=== PATIENT | female | born 1985 | race Caucasian/White ===

== ENCOUNTER → 2021-12-30 11:09 | Outpatient (CLI) | payer OTHER, SELFPAY ==
[2021-12-30 11:46] LABS: Add Manual Diff / Slide Review NO; Basophils Absolute Auto 100 /uL (0-100); Eosinophils Absolute Auto 100 /uL (0-450); Eosinophils Percent Auto 1.6 % (2-4); Hematocrit 38.8 % (36-46); Hemoglobin 13.4 g/dL (12.0-16.0); Lymphocytes Absolute Auto 1600 /uL (1100-4500); Mean Corpuscular HGB Conc 34.4 % (30-36); Mean Corpuscular Hemoglobin 27.4 PG (26-34); Mean Corpuscular Volume 79.8 fL (80-100); Monocytes Absolute Auto 500 /uL (0-900); Monocytes Percent Auto 7.6 % (3-14); Neutrophils Absolute Auto 3900 /uL (1500-7000); Neutrophils Percent Auto 63.8 % (50-75); Platelet Count 213 X10^3/uL (150-400); Red Blood Cell Count 4.87 X10^6/uL (4.0-5.2); Red Cell Distribution Width 13.4 % (11.6-14.8); White Blood Cell Count 6.1 X10^3/uL (4.5-11.0)
[2021-12-30 11:53] LABS: Hemoglobin A1C% w Est Avg Glu 4.9 % (4.0-6.0)
[2021-12-30 12:56] LABS: Prolactin 36.2 ng/mL (3.0-18.6)
[2021-12-30 13:09] LABS: TSH w/ Reflex to FT4 2.02 uIU/mL (0.47-4.68)
[2021-12-30 13:29] LABS: Vitamin B12 448 pg/mL (239-931)
[2021-12-31 08:52] LABS: Insulin Level Total 14.4 uIU/mL (2.6-24.9)
[2022-01-04 14:14] LABS: Percent Free Testosterone 1.41 % (0.50-2.80); Testosterone Free 0.24 ng/dL (0.10-0.85); Testosterone Total 16.8 ng/dL (10.0-55.0)
== END ==
PROVIDERS: PCP Family Medicine; Referring Provider Family Medicine; Visit Provider Family Medicine
DX: N97.0 Female infertility associated with anovulation (principal)
CPT/HCPCS: 36415; 82607; 83036; 83525; 84146; 84402; 84403; 84443; 85025

== ENCOUNTER → 2022-01-07 10:57 | Outpatient (CLI) | payer OTHER, SELFPAY ==
--- NOTE | 2022-01-07 10:57 | DI.MRI.S_ITS ---
PROCEDURE: MR HEAD/BRAIN WO/W CON INDICATIONS: 36-year-old female with hyperprolactinemia TECHNIQUE: Multiplanar multisequential MRI images of the brain and sella were obtained before and after intravenous gadolinium contrast administration. And dynamic postcontrast sequence the sella was also obtained COMPARISON: None. FINDINGS: Sella and Pituitary Gland: The pituitary gland is appropriate in size and signal. Posterior pituitary bright spot unremarkable. The post contrast images demonstrate normal homogeneous enhancement of the entire gland. The pituitary infundibulum is midline. No suprasellar cistern mass lesion present. The cavernous sinuses enhance normally. Flow voids are noted in the cavernous segments of both internal carotid arteries. Brain and Meninges: The diffusion sequence is normal without evidence of acute infarct. There is a normal cerebral and cerebellar volume present. White matter is unremarkable without evidence of edema. Basal cisterns are clear. No evidence of dural or leptomeningeal thickening. No abnormal enhancement noted. Susceptibility weighted imaging shows no evidence of intracranial hemorrhage. Ventricles: Appropriate in size and position. No hydrocephalus. Skull Base: Visualized portions of the seventh and eighth cranial nerve complexes and internal auditory canals are within normal limits. Scalp and Calvarium: The scalp is unremarkable. Underlying calvarium has an appropriate marrow signal. Paranasal Sinuses: Visualized sinuses are clear other than small bilateral maxillary sinus retention cyst. Mastoids: Unremarkable as visualized. No mastoid effusion. Orbits: The orbits, globes and ocular muscles unremarkable. IMPRESSION: Unremarkable MRI of the brain and pituitary gland with and without contrast. No evidence of pituitary adenoma. Approved by: Venkatesh Booth M.D. on 01/08/2022 at 8:17
== END ==
PROVIDERS: PCP Family Medicine; Referring Provider Family Medicine; Visit Provider Family Medicine
DX: R79.89 Other specified abnormal findings of blood chemistry (principal)
CPT/HCPCS: 70553; A9579

== ENCOUNTER → 2022-03-21 10:36 | Outpatient (CLI) | payer OTHER, SELFPAY ==
[2022-03-22 07:49] LABS: HCG Quantitative /Beta subunit 9288.9 mIU/mL
== END ==
PROVIDERS: PCP Family Medicine; Referring Provider Family Medicine; Visit Provider Family Medicine
DX: Z34.81 Encounter for supervision of other normal pregnancy, first trimester (principal)
CPT/HCPCS: 36415; 84702

== ENCOUNTER → 2022-03-24 10:16 | Outpatient (CLI) | payer OTHER, SELFPAY ==
[2022-03-24 12:42] LABS: HCG Quantitative /Beta subunit 1896.2 mIU/mL
== END ==
PROVIDERS: PCP Family Medicine; Referring Provider Family Medicine; Visit Provider Family Medicine
DX: Z34.81 Encounter for supervision of other normal pregnancy, first trimester (principal)
CPT/HCPCS: 36415; 84702

== ENCOUNTER → 2022-03-25 07:54 | Outpatient (CLI) | payer OTHER, SELFPAY ==
--- NOTE | 2022-03-25 07:56 | DI.MRI.S_ITS ---
PROCEDURE: MR HEAD/BRAIN WO/W CON INDICATIONS: visua changes, optic neuritis, r/o MS TECHNIQUE: Noncontrast sagittal and axial FLAIR, axial and coronal T2 fast spin echo, axial VIBE, axial gradient echo, axial diffusion and ADC through the brain. After the administration of contrast, axial and coronal VIBE with fat saturation through the brain. COMPARISON: [facility], MR, MR HEAD/BRAIN WO/W CON, 01/07/2022, 11:17. FINDINGS: Image quality: Excellent. CSF spaces: Ventricles are normal in size and shape. Basal cisterns are patent. No extra-axial fluid collections. Brain: No intracranial bleeds or mass effects. Mathias-white matter interface appears intact. No suspicious white matter lesions. No abnormal intracranial enhancement. Diffusion weighted images show no acute ischemic insults. Brainstem appears normal. Normal intravascular flow voids are present. Skull and face: Calvarial marrow signal is normal. Globes are within normal limits. There is moderate increased enhancement and mild enlargement involving the left optic nerve. Mildly increased FLAIR signal intensity within the left optic nerve is present.. Sinuses: Small bilateral maxillary sinus retention cyst. Sinuses and mastoids are otherwise clear. IMPRESSION: 1. Left-sided optic neuritis, consistent with multiple sclerosis. 2. No intracranial abnormalities to indicate multiple sclerosis. 3. No recent infarct. Dictated by: Manuel Olivas M.D. on 03/27/2022 at 8:32 Approved by: Manuel Olivas M.D. on 03/27/2022 at 8:35
--- NOTE | 2022-03-25 07:56 | DI.MRI.S_ITS ---
PROCEDURE: MR CERVICAL SPINE WO CON INDICATIONS: visual changes, optic neuritis, r/o MS TECHNIQUE: Noncontrast sagittal T1 spin echo and T2 fast spin echo, sagittal STIR, foraminal oblique sagittal T2 fast spin echo, and axial gradient echo or T2 fast spin echo through the cervical spine. COMPARISON: [facility], , C-SPINE WITHOUT CONTRAST, 02/17/2015, 17:11. FINDINGS: Image quality: Excellent. Alignment and Curvature: There is normal bony alignment. Bone Marrow: Marrow demonstrates normal overall signal. Spinal Cord: Visualized spinal cord has normal size and signal. No cerebellar tonsillar herniation. Paraspinous Soft Tissues: No paravertebral masses. Prevertebral soft tissues are normal in thickness. C2-C3: Normal appearance. C3-C4: Normal appearance. C4-C5: Mild disc desiccation. Mild facet and uncovertebral hypertrophy bilaterally. No canal stenosis. Mild bilateral foraminal stenosis. No significant change. C5-C6: Mild disc desiccation. Mild facet and uncovertebral hypertrophy bilaterally. No significant canal stenosis. Mild bilateral foraminal stenosis. No significant change. C6-C7: Mild disc desiccation and diffuse disc bulge with small superimposed central protrusion. Mild bilateral facet hypertrophy. Mild canal stenosis. No foraminal stenosis. No significant change. C7-T1: Normal appearance. IMPRESSION: 1. Multilevel degenerative disc and facet disease, as well as uncovertebral hypertrophy, causing mild multilevel canal and foraminal stenoses. No neural impingement. 2. No abnormal cord signal to indicate multiple sclerosis. Dictated by: Manuel Olivas M.D. on 03/27/2022 at 8:28 Approved by: Manuel Olivas M.D. on 03/27/2022 at 8:31
== END ==
PROVIDERS: PCP Naturopath; Referring Provider Naturopath; Visit Provider Family Medicine
DX: H46.9 Unspecified optic neuritis (principal); H53.9 Unspecified visual disturbance; M50.321 Other cervical disc degeneration at C4-C5 level; M48.02 Spinal stenosis, cervical region
CPT/HCPCS: 70553; 72141; A9579

== ENCOUNTER → 2022-06-20 10:49 | Outpatient (CLI) | payer OTHER, SELFPAY ==
[2022-06-20 11:42] LABS: Add Manual Diff / Slide Review NO; Basophils Absolute Auto 0 /uL (0-100); Basophils Percent Auto 0.8 % (0-2); Eosinophils Absolute Auto 0 /uL (0-450); Eosinophils Percent Auto 0.9 % (2-4); Hematocrit 38.2 % (36-46); Hemoglobin 12.9 g/dL (12.0-16.0); Lymphocytes Absolute Auto 1700 /uL (1100-4500); Lymphocytes Percent Auto 31.5 % (25-40); Mean Corpuscular HGB Conc 33.8 % (30-36); Mean Corpuscular Hemoglobin 26.6 PG (26-34); Mean Corpuscular Volume 78.7 fL (80-100); Monocytes Absolute Auto 500 /uL (0-900); Monocytes Percent Auto 9.4 % (3-14); Neutrophils Absolute Auto 3100 /uL (1500-7000); Neutrophils Percent Auto 57.4 % (50-75); Platelet Count 226 X10^3/uL (150-400); Red Blood Cell Count 4.86 X10^6/uL (4.0-5.2); Red Cell Distribution Width 15.2 % (11.6-14.8); White Blood Cell Count 5.4 X10^3/uL (4.5-11.0)
[2022-06-20 12:08] LABS: HCG Quantitative /Beta subunit 324.2 mIU/mL
[2022-06-20 12:35] LABS: Hepatitis B Surface Antigen NEGATIVE s/c (NEGATIVE); Rubella Antibody IgG 25.4 IU/mL (>15)
[2022-06-20 12:52] LABS: HIV 1 & 2 Ab/Ag 4th Gen Combo NEGATIVE (NEGATIVE); Hep C Virus Ab w/Reflex Quant NEGATIVE s/c (NEGATIVE)
[2022-06-20 12:53] LABS: Appearance Urine UA CLEAR; Bilirubin Urine UA NEGATIVE (NEGATIVE); Color Urine UA YELLOW; Glucose Urine UA NEGATIVE (Negative); Ketones Urine UA NEGATIVE (NEGATIVE); Leukocyte Esterase Urine UA TRACE (NEGATIVE); Nitrite Urine UA NEGATIVE (Negative); Occult Blood Urine UA NEGATIVE (Negative); Protein Urine UA NEGATIVE (Negative); Specific Gravity Urine UA 1.015 (1.000-1.035); Urobilinogen Urine UA 0.2 E.U./dL (0.2)
[2022-06-20 13:11] LABS: Bacteria Urine None Seen; Culture Indicated Urine Cult Not Indicated; RBC Urine None Seen (0-5/HPF); Squamous Epithelial Cell Urine 0-1 /HPF (0-5/HPF); WBC Urine 0-1/HPF (0-5/HPF)
[2022-06-21 07:10] LABS: RPR Screen Non Reactive (Non Reactive); Varicella IgG Antibody 2591 index (Immune >165)
[2022-06-25 17:58] LABS: Estrogen 138 pg/mL (.)
[2022-06-27 20:09] LABS: % Free Progesterone 2.3 % (.); Free Progesterone 45 ng/dL (.); Progesterone, Serum 1937 ng/dL (.)
== END ==
PROVIDERS: PCP Family Medicine; Referring Provider Family Medicine; Visit Provider Family Medicine
DX: Z34.81 Encounter for supervision of other normal pregnancy, first trimester (principal); E28.2 Polycystic ovarian syndrome
CPT/HCPCS: 36415; 80055; 81003; 81015; 82672; 84144; 84443; 84702; 84999; 86787; 86803; 86850; 86900; 86901; 87389

== ENCOUNTER → 2022-06-22 11:03 | Outpatient (CLI) | payer OTHER, SELFPAY ==
[2022-06-22 11:56] LABS: HCG Quantitative /Beta subunit 752.2 mIU/mL
== END ==
PROVIDERS: PCP Family Medicine; Referring Provider Family Medicine; Visit Provider Family Medicine
DX: Z34.81 Encounter for supervision of other normal pregnancy, first trimester (principal)
CPT/HCPCS: 36415; 84702

== ENCOUNTER → 2022-07-19 12:45 | Outpatient (CLI) | payer OTHER, SELFPAY ==
--- NOTE | 2022-07-19 12:47 | DI.US.S_ITS ---
PROCEDURE: US OB <= 14 WK FETUS ADD GEST INDICATIONS: 8 wk, determine type of twin OUTSIDE/PRIOR DATING DATA: Last menstrual period (LMP): Unknown. LMP-based estimated date of delivery (JESSENIA): Unknown. First dating scan (date and location): 07/20/2022. Estimated date of delivery (JESSENIA) from first dating scan: 02/25/2023. TECHNIQUE: Real-time scanning was performed of the fetuses and maternal pelvic organs, with image documentation. Endovaginal scanning: Performed for better visualization of the fetuses and maternal adnexal structures. COMPARISON: None. FINDINGS: General: An intrauterine diamniotic twin is present. Embryo A: A yolk sac is identified. [place]-rump length measures 1.7 cm, 8 weeks 1 day. Heart rate: 169 Embryo B: A yolk sac is identified. [place]-rump length measures 1.9 cm, 8 weeks 3 days. There is an adjacent perigestational bleed Heart rate: 178 Maternal organs: Ovaries demonstrate a probable corpus luteal cyst on the right. IMPRESSION: 1. Live twin measuring 8 weeks 1 day/8 weeks 3 days. 2. Perigestational bleed adjacent to twin B. We strive to produce accurate, complete, and clear reports of imaging services. To assist us in improving patient care, this report was composed using standard report templates and voice recognition software. Therefore, it may contain abnormal punctuation, insertions and/or omissions. Occasional wrong-word or sound-alike substitutions may occur. Though we review the report and make efforts to correct it, we do recommend that the report be read carefully in proper context to recognize any text inaccuracies. Dictated by: Evert Redmond M.D. on 07/21/2022 at 8:28 Approved by: Evert Redmond M.D. on 07/21/2022 at 8:36
== END ==
PROVIDERS: PCP Family Medicine; Referring Provider Obstetrics & Gynecology; Visit Provider Obstetrics & Gynecology
DX: O30.001 Twin pregnancy, unspecified number of placenta and unspecified number of amniotic sacs, first trimester (principal); O20.9 Hemorrhage in early pregnancy, unspecified; Z3A.08 8 weeks gestation of pregnancy
CPT/HCPCS: 76801; 76802; 76817

== ENCOUNTER → 2022-08-09 09:02 | Outpatient (CLI) | payer OTHER, SELFPAY ==
--- NOTE | 2022-08-09 09:03 | DI.US.S_ITS ---
PROCEDURE: US OB <= 14 WEEKS FETUS INDICATIONS: TWIN GESTATION; EVALUATE FOR DIVIDING MEMBRANE OUTSIDE/PRIOR DATING DATA: Last menstrual period (LMP): Unknown LMP-based estimated date of delivery (JESSENIA): Unknown. First dating scan (date and location): 07/19/2022 Estimated date of delivery (JESSENIA) from first dating scan: 02/25/2023 The calculations are made using the study generated JESSENIA of 02/25/2023. TECHNIQUE: Real-time scanning was performed of the fetuses and maternal pelvic organs, with image documentation. Endovaginal scanning: Performed for better visualization of the fetuses and maternal adnexal structures. COMPARISON: [facility], , OB <= 14 WK FETUS ADD GEST, 07/19/2022, 13:06. FINDINGS: General: An intrauterine diamniotic monochorionic twin is present, as evidence by intervening membrane thickness of greater than 2 mm at this early gestational age. Placental location is anterior with complete placenta previa. Embryo A: Maternal right side with breech presentation. [place]-rump length measures 4.6 cm. Estimated gestational age is 11 weeks, 3 days. Estimated gestational age based on previous study is 11 weeks, 3 days. Heart rate: 165 beats per minute Embryo B: Maternal left side and is in transverse presentation. [place]-rump length measures 5.3 cm with estimated gestational age of 12 weeks, 0 day. Estimated gestational age based on previous study is 11 weeks, 3 days. Heart rate: 169 beats per minute Maternal organs: Ovaries are not visualized. IMPRESSION: 1. Diamniotic monochorionic twin gestation as described in detail above. 2. Placenta location is anterior with complete% a previa. We strive to produce accurate, complete, and clear reports of imaging services. To assist us in improving patient care, this report was composed using standard report templates and voice recognition software. Therefore, it may contain abnormal punctuation, insertions and/or omissions. Occasional wrong-word or sound-alike substitutions may occur. Though we review the report and make efforts to correct it, we do recommend that the report be read carefully in proper context to recognize any text inaccuracies. Dictated by: Jesus Farah M.D. on 08/09/2022 at 13:00 Approved by: Jesus Farah M.D. on 08/09/2022 at 13:05
== END ==
PROVIDERS: PCP Family Medicine; Referring Provider Obstetrics & Gynecology; Visit Provider Obstetrics & Gynecology
DX: O30.031 Twin pregnancy, monochorionic/diamniotic, first trimester (principal)
CPT/HCPCS: 76801; 76802; 76817

== ENCOUNTER → 2022-08-14 09:43 | Outpatient (CLI) | payer OTHER, SELFPAY ==
[2022-08-14 11:53] LABS: Add Manual Diff / Slide Review NO; Basophils Absolute Auto 0 /uL (0-100); Basophils Percent Auto 0.4 % (0-2); Eosinophils Absolute Auto 100 /uL (0-450); Eosinophils Percent Auto 1.1 % (2-4); Hematocrit 36.2 % (36-46); Hemoglobin 12.3 g/dL (12.0-16.0); Lymphocytes Absolute Auto 1100 /uL (1100-4500); Lymphocytes Percent Auto 15.5 % (25-40); Mean Corpuscular Hemoglobin 26.5 PG (26-34); Monocytes Absolute Auto 600 /uL (0-900); Monocytes Percent Auto 9.1 % (3-14); Neutrophils Absolute Auto 5200 /uL (1500-7000); Neutrophils Percent Auto 73.9 % (50-75); Platelet Count 181 X10^3/uL (150-400); Red Blood Cell Count 4.65 X10^6/uL (4.0-5.2)
[2022-08-14 15:29] LABS: Hepatitis B Surface Antigen NEGATIVE s/c (NEGATIVE); Rubella Antibody IgG 24.1 IU/mL (>15)
[2022-08-14 15:45] LABS: HIV 1 & 2 Ab/Ag 4th Gen Combo NEGATIVE (NEGATIVE); Hep C Virus Ab w/Reflex Quant NEGATIVE s/c (NEGATIVE)
[2022-08-15 08:09] LABS: RPR Screen Non Reactive (Non Reactive)
[2022-08-15 10:41] LABS: Varicella IgG Antibody 2379 index (Immune >165)
== END ==
PROVIDERS: PCP Family Medicine; Referring Provider Obstetrics & Gynecology; Visit Provider Obstetrics & Gynecology
DX: Z34.81 Encounter for supervision of other normal pregnancy, first trimester (principal)
CPT/HCPCS: 36415; 80055; 86787; 86803; 86850; 86900; 86901; 87389

== ENCOUNTER → 2022-09-11 09:55 | Outpatient (CLI) | payer OTHER, SELFPAY ==
[2022-09-12 07:58] LABS: Candida species Positive (Negative); Gardnerella vaginalis Negative (Negative); Trichomoas vaginalis Negative (Negative)
== END ==
PROVIDERS: PCP Family Medicine; Visit Provider Obstetrics & Gynecology
DX: N89.8 Other specified noninflammatory disorders of vagina (principal)
CPT/HCPCS: 87480; 87510; 87660

== ENCOUNTER → 2022-10-16 11:06 | Outpatient (CLI) | payer OTHER, SELFPAY ==
--- NOTE | 2022-10-16 11:07 | DI.US.S_ITS ---
PROCEDURE: OB >= 14 WEEKS FETUS INDICATIONS: Anatomy Scan OUTSIDE/PRIOR DATING DATA: Last menstrual period (LMP): Unknown. First dating scan (date and location): 07/19/2022. Estimated date of delivery (JESSENIA) from first dating scan: 02/25/2023. TECHNIQUE: Real-time scanning was performed of the fetuses, with image documentation and biometric measurements. Endovaginal scanning: Not performed COMPARISON: Outside Facility, [facility] OB TWINS < 14 WEEKS, 07/10/2022, 10:32. [facility] OB <= 14 WK FETUS ADD GEST, 07/19/2022, 13:06. [facility] OB <= 14 WEEKS FETUS, 08/09/2022, 9:15. [facility] OB >= 14 WEEKS FETUS, 08/14/2022, 9:31. [facility] OB >= 14 WEEKS FETUS, 09/11/2022, 10:01. [facility] OB >= 14 WEEKS FETUS, 10/11/2022, 11:13. FINDINGS: General: An intrauterine monochorionic diamniotic twin is present. Amniotic fluid index (composite): 25.6 cm. Maternal cervical canal: 6.4 cm long. Normal lower limit is 2.5 cm. FETUS A: Breech presentation. Placental position is anterior, without previa. Eccentric cord origin, 1.2 cm from the placental edge. heart rate: 155 beats per minute. biometrics: Biparietal diameter: 4.9 cm, 20 weeks 5 days Head circumference: 19.0 cm, 21 weeks 2 days Abdominal circumference: 16.1 cm, 21 weeks 1 day Femur length: 3.2 cm, 20 weeks 0 days estimated gestational age: 21 weeks 1 day Composite gestational age from present scan: 20 weeks 6 days Estimated weight and percentile: 372 g, 24th percentile Anatomic survey: Neuro: Ventricles are normal at less than 10 mm. Cisterna magna is normal at 3-11 mm. Cerebellum is normal in size and morphology. Nuchal skin fold: Normal at less than 6 mm between 14 and 21 weeks gestational age. Face: Nose and lips, facial profile are normal. Spine: No evidence for spina bifida. Heart: 4 chambered heart is present, with normal ventricular outflow tracts. Diaphragm: Diaphragm is intact. Stomach: Left-sided stomach is present. Kidneys: No hydronephrosis. Normal ranges are less than 5 mm in 2nd trimester, less than 7 mm in 3rd trimester. Cord: 3 vessel cord has orthotopic insertion. Bladder: Normal in size. Extremities: All 4 extremities are visualized. FETUS B: Variable presentation. Placental position is anterior , without previa. heart rate: 132 beats per minute. biometrics: Biparietal diameter: 5.4 cm, 22 weeks 3 days Head circumference: 20.3 cm, 22 weeks 3 days Abdominal circumference: 17.1 cm, 22 weeks 1 day Femur length: 3.8 cm, 22 weeks 1 day estimated gestational age: 21 weeks 1 day Composite gestational age from present scan: 22 weeks 2 days Estimated weight and percentile: 480 g, 91st percentile Anatomic survey: Neuro: Ventricles are normal at less than 10 mm. Cisterna magna is normal at 3-11 mm. Cerebellum is normal in size and morphology. Nuchal skin fold: Normal at less than 6 mm between 14 and 21 weeks gestational age. Face: Nose and lips, facial profile are normal. Spine: No evidence for spina bifida. Heart: Not well visualized Diaphragm: Diaphragm is intact. Stomach: Left-sided stomach is present. Kidneys: No hydronephrosis. Normal ranges are less than 5 mm in 2nd trimester, less than 7 mm in 3rd trimester. Cord: 3 vessel cord has orthotopic insertion. Bladder: Normal in size. Extremities: All 4 extremities are visualized. IMPRESSION: 1. Living twin monochorionic diamniotic . 2. Normal 2nd trimester anatomy survey of twin A. 3. Cardiac views of twin B not well visualized. Otherwise, the anatomy survey of twin B is unremarkable. Short-term follow-up is recommended. 4. Estimated weight of twin A at the 24th percentile. Estimated weight of twin B at the 91st percentile. 5. Maximum vertical pocket for each twin was not documented. This can be assessed at time of follow-up for cardiac views for twin B, or sooner if clinically indicated. The bladder of each twin was visualized. 6. Eccentric umbilical cord origin of twin A, 1.2 cm from the placental edge. We strive to produce accurate, complete, and clear reports of imaging services. To assist us in improving patient care, this report was composed using standard report templates and voice recognition software. Therefore, it may contain abnormal punctuation, insertions and/or omissions. Occasional wrong-word or sound-alike substitutions may occur. Though we review the report and make efforts to correct it, we do recommend that the report be read carefully in proper context to recognize any text inaccuracies. Dictated by: Jake Monsivais M.D. on 10/16/2022 at 15:48 Approved by: Jake Monsivais M.D. on 10/16/2022 at 17:04
[2022-10-18 20:35] LABS: AFP Value 149.9 ng/mL (.); Gest Age on Col Date 20.7 weeks (.); Insulin Dep Diabetes No (.); OSBR Risk 1IN 468 (.); Results Report (.); Test Results *Screen Negative* (.)
== END ==
PROVIDERS: PCP Family Medicine; Referring Provider Obstetrics & Gynecology; Visit Provider Obstetrics & Gynecology
DX: O30.032 Twin pregnancy, monochorionic/diamniotic, second trimester (principal); Z3A.20 20 weeks gestation of pregnancy
CPT/HCPCS: 36415; 76811; 76812; 82105

== ENCOUNTER → 2022-11-30 09:55 | Outpatient (CLI) | payer OTHER, SELFPAY ==
[2022-11-30 14:19] LABS: Hematocrit 25.5 % (36-46); Hemoglobin 8.2 g/dL (12.0-16.0)
[2022-11-30 14:30] LABS: Hemoglobin A1C% w Est Avg Glu 4.9 % (4.0-6.0)
[2022-11-30 14:55] LABS: Alanine Aminotransferase 17 IU/L (<35); Albumin 3.4 g/dL (3.5-5.0); Albumin Globulin Ratio 1.2 (1.0-2.8); Alkaline Phosphatase 73 U/L (38-126); Aspartate Aminotransferase 18 IU/L (14-36); BUN Creatinine Ratio 12.9 (6-22); Bilirubin Total 0.2 mg/dL (0.2-1.3); Blood Urea Nitrogen 8 mg/dL (7-17); Calcium 8.7 mg/dL (8.4-10.2); Carbon Dioxide 22 mmol/L (22-32); Chloride 102 mmol/L (98-107); Estimated Glomerular Filt Rate > 60 mL/min (>60); Globulin 2.8 g/dL (1.7-4.1); Glucose 126 mg/dL (70-100); HEMOLYSIS < 15 (0-50); Potassium 3.4 mmol/L (3.4-5.1); Sodium 133 mmol/L (137-145); Total Protein 6.2 g/dL (6.3-8.2)
[2022-11-30 14:57] LABS: GTT (PREG) 1 Hour PP 50gm Dose 122 mg/dL (76-139)
[2022-11-30 15:10] LABS: Creatinine Urine Random 81.1 mg/dL; Protein (Total) Urine Random 9 mg/dL (0-12); Protein Creatinine Ratio Urine 0.11 GRAM/24H
== END ==
PROVIDERS: Obstetrics & Gynecology; PCP Family Medicine; Referring Provider Obstetrics & Gynecology; Visit Provider Obstetrics & Gynecology
DX: O30.039 Twin pregnancy, monochorionic/diamniotic, unspecified trimester (principal); Z3A.27 27 weeks gestation of pregnancy; N12 Tubulo-interstitial nephritis, not specified as acute or chronic
CPT/HCPCS: 36415; 80053; 82570; 82950; 83036; 84156; 85014; 85018; 87086

== ENCOUNTER → 2022-12-13 16:06 | Outpatient (CLI) | payer OTHER, SELFPAY | PROVIDERS: PCP Family Medicine; Visit Provider Obstetrics & Gynecology | DX: O23.00 Infections of kidney in pregnancy, unspecified trimester (principal) | CPT/HCPCS: 87086 ==

== ENCOUNTER → 2022-12-13 17:02 | Outpatient (CLI) | payer OTHER, SELFPAY ==
[2022-12-13 18:38] LABS: HEMOLYSIS < 15 (0-50); Iron 32 ug/dL (37-170)
[2022-12-13 18:49] LABS: Percent Iron Saturation 6 % (15-50); Total Iron Binding Capacity 566 ug/dL (265-497); Transferrin 435 mg/dL (206-381)
== END ==
PROVIDERS: PCP Family Medicine; Referring Provider Obstetrics & Gynecology; Visit Provider Obstetrics & Gynecology
DX: O99.019 Anemia complicating pregnancy, unspecified trimester (principal); O23.00 Infections of kidney in pregnancy, unspecified trimester
CPT/HCPCS: 36415; 83540; 83550; 87086

== ENCOUNTER 2023-01-05 09:56 | Outpatient (CLI) | payer OTHER, SELFPAY | END 2023-01-05 11:00 | disposition home or self-care (01) | LOC: LABOR 11:20 → OB 17:03 | PROVIDERS: PCP Family Medicine; Referring Provider Obstetrics & Gynecology; Visit Provider Obstetrics & Gynecology | DX: O36.8130 Decreased fetal movements, third trimester, not applicable or unspecified (principal); O30.003 Twin pregnancy, unspecified number of placenta and unspecified number of amniotic sacs, third trimester; Z3A.32 32 weeks gestation of pregnancy | CPT/HCPCS: 59025; G0378; G0379 ==

== ENCOUNTER 2023-01-12 09:49 | Outpatient (CLI) | payer OTHER, SELFPAY | END 2023-01-12 11:00 | disposition home or self-care (01) | LOC: OB 01-18 13:38 | PROVIDERS: PCP Family Medicine; Referring Provider Obstetrics & Gynecology; Visit Provider Obstetrics & Gynecology | DX: O30.003 Twin pregnancy, unspecified number of placenta and unspecified number of amniotic sacs, third trimester (principal); O09.523 Supervision of elderly multigravida, third trimester; Z3A.33 33 weeks gestation of pregnancy | CPT/HCPCS: 59025; G0378; G0379 ==

== ENCOUNTER 2023-01-19 12:48 | Outpatient (CLI) | payer OTHER, SELFPAY | END 2023-01-19 14:12 | disposition home or self-care (01) | LOC: LABOR 13:51 → OB 01-24 06:57 | PROVIDERS: PCP Family Medicine; Referring Provider Obstetrics & Gynecology; Visit Provider Obstetrics & Gynecology | DX: O30.003 Twin pregnancy, unspecified number of placenta and unspecified number of amniotic sacs, third trimester (principal); O09.523 Supervision of elderly multigravida, third trimester; Z3A.34 34 weeks gestation of pregnancy | CPT/HCPCS: 59025; G0378; G0379 ==

== ENCOUNTER → 2023-06-21 09:45 | Outpatient (CLI) | payer OTHER, SELFPAY ==
[2023-06-21 10:57] LABS: Add Manual Diff / Slide Review NO; Basophils Absolute Auto 0 /uL (0-100); Basophils Percent Auto 0.9 % (0-2); Eosinophils Absolute Auto 100 /uL (0-450); Hematocrit 38.5 % (36-46); Hemoglobin 12.9 g/dL (12.0-16.0); Lymphocytes Absolute Auto 1600 /uL (1100-4500); Lymphocytes Percent Auto 32.9 % (25-40); Mean Corpuscular HGB Conc 33.5 % (30-36); Mean Corpuscular Hemoglobin 26.7 PG (26-34); Mean Corpuscular Volume 79.9 fL (80-100); Monocytes Absolute Auto 400 /uL (0-900); Monocytes Percent Auto 8.9 % (3-14); Neutrophils Absolute Auto 2700 /uL (1500-7000); Neutrophils Percent Auto 55.3 % (50-75); Platelet Count 218 X10^3/uL (150-400); Red Blood Cell Count 4.82 X10^6/uL (4.0-5.2); Red Cell Distribution Width 13.9 % (11.6-14.8); White Blood Cell Count 4.9 X10^3/uL (4.5-11.0)
[2023-06-21 11:09] LABS: HEMOLYSIS < 15 (0-50); Iron 49 ug/dL (37-170)
[2023-06-21 11:20] LABS: Percent Iron Saturation 13 % (15-50); Total Iron Binding Capacity 391 ug/dL (265-497); Transferrin 304 mg/dL (206-381)
[2023-06-21 11:42] LABS: TSH w/ Reflex to FT4 0.09 uIU/mL (0.47-4.68)
[2023-06-21 12:11] LABS: Free T4, Direct Thyroxine 0.84 ng/dL (0.78-2.19)
[2023-06-21 12:20] LABS: Folate > 20.0 ng/mL (2.76-20.0); Vitamin B12 808 pg/mL (239-931)
[2023-06-25 12:38] LABS: Vitamin B1 66.2 nmol/L (66.5-200.0)
== END ==
PROVIDERS: PCP Family Medicine; Referring Provider Family Medicine; Visit Provider Family Medicine
DX: R53.83 Other fatigue (principal); K90.0 Celiac disease
CPT/HCPCS: 36415; 82607; 82746; 83036; 83540; 83550; 84425; 84439; 84443; 85025

== ENCOUNTER → 2023-10-25 16:41 | Outpatient (CLI) | payer OTHER, SELFPAY ==
[2023-10-25 17:37] LABS: Free T3, Triiodothyronine Free 3.35 pg/mL (2.77-5.27); Free T4, Direct Thyroxine 0.95 ng/dL (0.78-2.19)
[2023-10-25 17:50] LABS: Thyroid Stimulating Hormone 1.81 uIU/mL (0.47-4.68)
[2023-10-27 08:02] LABS: Thyroid Peroxidase Antibodies 10 IU/mL (0-34)
[2023-10-28 15:54] LABS: Anti Thyroglobulin Antibody <1.0 IU/mL (0.0-0.9)
== END ==
PROVIDERS: PCP Family Medicine; Referring Provider Family Medicine; Visit Provider Family Medicine
DX: E05.90 Thyrotoxicosis, unspecified without thyrotoxic crisis or storm (principal)
CPT/HCPCS: 84439; 84443; 84481; 86376; 86800

== ENCOUNTER → 2023-10-31 11:13 | Outpatient (CLI) | payer OTHER, SELFPAY ==
--- NOTE | 2023-10-31 11:14 | DI.US.S_ITS ---
PROCEDURE: US THYROID INDICATIONS: HYPERTHYROIDISM TECHNIQUE: Real-time scanning was performed of the thyroid gland, with image documentation. COMPARISON: None. FINDINGS: Right: Thyroid lobe measures 5.0 x 1.9 x 1.3 cm, and is homogeneous in echotexture. Left: Thyroid lobe measures 4.7 x 1.7 x 1 4 cm, and is homogenous in echotexture. Isthmus: 1.7 mm thick. Nodule number: 1 Location: Left mid Size: 0.8 x 0.9 x 0.6 cm. Composition: Solid Echogenicity: Hypoechoic Shape: wider than tall. Margins: Smooth Echogenic foci: None Total points: 4 ACR TI-RADS category: 4 IMPRESSION: Category 4 lesion. Secondary to size as below, no additional follow-up is recommended. ACR TI-RADS definitions and recommendations: TI-RADS 1 (benign): 0 points. FNA not needed. TI-RADS 2 (not suspicious): 2 points. FNA not needed. TI-RADS 3 (mildly suspicious): 3 points. * FNA if 2.5 cm or larger, follow up if 1.5 cm or larger (at 1, 3, and 5 years). TI-RADS 4 (moderately suspicious): 4-6 points. * FNA if 1.5 cm or larger, follow up if 1 cm or larger (at 1, 2, 3, and 5 years). TI-RADS 5 (highly suspicious): 7 points or more. * FNA if 1 cm or larger, follow up if 0.5 cm or larger (every year for 5 years). Dictated by: Gina Flannery M.D. on 10/31/2023 at 16:43 Approved by: Gina Flannery M.D. on 10/31/2023 at 16:44
== END ==
PROVIDERS: PCP Family Medicine; Referring Provider Family Medicine; Visit Provider Family Medicine
DX: E05.90 Thyrotoxicosis, unspecified without thyrotoxic crisis or storm (principal); E04.1 Nontoxic single thyroid nodule
CPT/HCPCS: 76536

== ENCOUNTER → 2023-12-28 12:33 | Outpatient (CLI) | payer OTHER, SELFPAY ==
--- NOTE | 2023-12-28 12:34 | DI.ECHO.S_ITS ---
[facility] +---------+ [facility] +---------+ : : [address] : : : : [id number] : : : : Phone: [phone]+ Echocardiogram Report + + :Name: IAN ARELLANO Study Date: 12/28/2023 Height: 63 in : :[facility] ReadingLocation: Weight: 203 lb : : Gender: Female BSA: 1.9 m2 : :: 1985 Age: 38 yrs BP: 119/74 mmHg: :Reason For Study: FAMILY HISTORY OF PULMONIC STENOSIS : :Ordering Physician: OMAIRA, : :KARISSA Performed By: Blanche Jackson : :Referring: KARISSA CASTANO : + + Interpretation Summary The ejection fraction is estimated to be 55-60%. Diastolic parameters suggest probable normal left ventricular diastolic function and normal filling pressures. The right ventricle is normal in size and function. There is trace pulmonic regurgitation. There is no pulmonic valvular stenosis. [facility] Procedure: A two-dimensional transthoracic echocardiogram with color flow and Doppler was performed. The study quality was technically adequate. Comparison is made with the echocardiogram of 12/11/2016. The patient was in sinus rhythm with heart rates between 57-74 bpm during the exam. Left Ventricle: The left ventricle is normal in size and wall thickness. The ejection fraction is estimated to be 55-60%. Left ventricular wall motion is normal. Diastolic parameters suggest probable normal left ventricular diastolic function and normal filling pressures. Right Ventricle: The right ventricle is normal in size and function. Atria: The left atrial size is normal. Right atrial size is normal. There is no Doppler evidence for an interatrial shunt. Mitral Valve: The mitral valve is normal in structure and function. There is trace mitral regurgitation. Aortic Valve: The aortic valve is trileaflet. The aortic valve opens well. There is no aortic valve stenosis. There is trace aortic regurgitation. Tricuspid Valve: The tricuspid valve is normal in structure and function. There is trace tricuspid regurgitation. Pulmonic Valve: The pulmonic valve leaflets are thin and pliable; valve motion is normal. There is no pulmonic valvular stenosis. There is trace pulmonic regurgitation. Great Vessels: The aortic root is normal size. The dimensions of the ascending aorta are normal. The IVC is of normal diameter and collapses greater than 50% with a sniff. This suggests a low right atrial pressure of 3 mm Hg. Pericardium/ Pleura There is no pericardial effusion. There is no pleural effusion. MMode/2D Measurements & Calculations LVIDd: 4.8 cm LVOT diam: 2.1 cm LVIDs: 3.4 cm Ao root diam: 3.0 cm FS: 29.2 % asc Aorta Diam: 2.9 cm EPSS: 1.1 cm Ao Arch Diam (Prox Trans): 2.6 cm IVSd: 0.73 cm LVPWd: 0.69 cm LV souza. diameter/BSA (cm/m^2): 2.5 LV sys. diameter/BSA (cm/m^2): 1.8 LA A2 area: 17.4 cm2 RA long axis: 5.1 cm LA A4 area: 18.9 cm2 RA area: 16.9 cm2 LA length (vol): 5.5 cm RA vol: 47.4 ml LA vol: 51.1 ml RA : 24.4 ml/m2 LA vol index: 26.2 ml/m2 IVC diam: 1.6 cm RVD1 (basal): 3.7 cm RVD2 (mid): 3.7 cm TAPSE: 1.9 cm Doppler Measurements & Calculations Ao V2 max: 132.4 cm/sec LVOT Max Caio: 72.1 cm/sec Ao V2 mean: 96.6 cm/sec LV V1 max P.1 mmHg Ao max P.0 mmHg LV V1 VTI: 17.1 cm Ao mean P.0 mmHg OSWALDO(I,D): 2.0 cm2 Ao V2 VTI: 29.4 cm OSWALDO(V,D): 1.9 cm2 sev ratio: 0.58 OSWALDO indexed to BSA (cm^2/m^2): 1.1 MV E max caio: 70.1 cm/sec PA V2 max: 96.0 cm/sec MV A max caio: 88.2 cm/sec PA V2 mean: 67.3 cm/sec MV E/A: 0.79 PA mean P.0 mmHg Med Peak E' Caio: 7.4 cm/sec PA pr(Accel): 8.8 mmHg E/E' med: 9.5 Lat Peak E' Caio: 12.4 cm/sec E/E' lat: 5.7 E/e' average: 7.6 MV dec time: 0.[address] [facility]): 60.2 ml Reading Physician:JASMINE
== END ==
PROVIDERS: PCP Family Medicine; Referring Provider Family Medicine; Visit Provider Family Medicine
DX: Z13.6 Encounter for screening for cardiovascular disorders (principal); Z82.49 Family history of ischemic heart disease and other diseases of the circulatory system
CPT/HCPCS: 93306

== ENCOUNTER → 2024-05-26 12:16 | Outpatient (CLI) | payer OTHER, SELFPAY ==
[2024-05-26 13:43] LABS: HCG Quantitative /Beta subunit < 2.39 mIU/mL
== END ==
PROVIDERS: PCP Family Medicine; Referring Provider Family Medicine; Visit Provider Family Medicine
DX: E28.2 Polycystic ovarian syndrome (principal); N91.2 Amenorrhea, unspecified
CPT/HCPCS: 84702

== ENCOUNTER → 2024-06-04 10:18 | Outpatient (CLI) | payer OTHER, SELFPAY ==
[2024-06-04 11:58] LABS: Free T3, Triiodothyronine Free 3.08 pg/mL (2.77-5.27); Free T4, Direct Thyroxine 0.89 ng/dL (0.78-2.19)
[2024-06-04 11:59] LABS: Follicle Stimulating Hormone 25.7 mIU/mL; Prolactin 9.7 ng/mL (3.0-18.6)
[2024-06-04 12:11] LABS: Thyroid Stimulating Hormone 1.11 uIU/mL (0.47-4.68)
[2024-06-13 12:19] LABS: Anti Mullerian Hormone 0.122 ng/mL (.)
== END ==
PROVIDERS: PCP Family Medicine; Referring Provider Family Medicine; Visit Provider Family Medicine
DX: E05.90 Thyrotoxicosis, unspecified without thyrotoxic crisis or storm (principal); N92.6 Irregular menstruation, unspecified
CPT/HCPCS: 36415; 82397; 83001; 84146; 84439; 84443; 84481